=== PATIENT | male | born 1980 ===

== ENCOUNTER 2021-10-16 21:33 | Inpatient (IN) | payer BC, OTHER ==
[~2021-10-16] VITALS: Ht 190.5 cm; Wt 76.3 kg
[~2021-10-16 21:33] MED LIST: ACHD5005 PO; AMOX500C2 PO; CLIN-81 PO; CYCL10TA25 PO; HYDR-4226 PO; OXYC1TAB87 PO; TRAM50TA2 PO
[2021-10-16] MEDS ORDERED: 1/2 NS IV SOLUTION 1,000 ML IV PRN (23:30)
[2021-10-16] MEDS ORDERED: polyethylene glycoL POWDER 17 GM (MIRALAX) PACK PO PRN (23:30)
[2021-10-16] MEDS ORDERED: morphine INJ 4 MG/ML 1 ML (VIAL/SYRINGE) IV PRN (23:30)
[2021-10-16] MEDS ORDERED: LORazepam INJ 2 MG/ML (ATIVAN) VIAL IM/IV PRN (23:30)
[2021-10-16] MEDS ORDERED: VANCOMYCIN INJECTION 0.1 MG in NS (IVPB) 250 ML IV SCH (23:30)
[2021-10-16] MEDS ORDERED: ONDANSETRON 4 MG/2 ML (SDV) Z0FRAN IV PRN ×2 (23:30)
[2021-10-16] MEDS ORDERED: ONDANSETRON 4 MG (ZOFRAN) ORAL DISSOLVE TAB SL PRN (23:30)
[2021-10-16] MEDS ORDERED: diphenhydrAMINE 25 MG TAB (BENADRYL) PO PRN (23:30)
[2021-10-16] MEDS ORDERED: MELATONIN 3 MG TABLET PO PRN (23:30)
[2021-10-16] MEDS ORDERED: D5 1/2 NS 1000 ML IV SOLUTION 1,000 ML IV PRN (23:30)
[2021-10-16] MEDS ORDERED: MILK OF MAGNESIA 400 MG/5 ML 30 ML UDC PO PRN (23:30)
[2021-10-16] MEDS ORDERED: LORazepam 1 MG (ATIVAN) TAB PO PRN (23:30)
[2021-10-16] MEDS ORDERED: DIAZEPAM INJ 10 MG/2 ML (VALIUM) SYR IVP PRN (23:30)
[2021-10-16] MEDS ORDERED: ONDANSETRON 4 MG (ZOFRAN) ORAL DISSOLVE TAB PO PRN (23:30)
[2021-10-16] MEDS ORDERED: LACTULOSE SYRUP 10GM/15ML (ENULOSE) 30ML UDC PO PRN (23:30)
[2021-10-16] MEDS ORDERED: diphenhydrAMINE 50 MG/ML INJ (BENADRYL) IVP PRN (23:30)
[2021-10-16] MEDS ORDERED: ANTACID SUSP 30 ML UDC (MYLANTA) PO PRN ×2 (23:30)
[2021-10-16] MEDS ORDERED: CALCIUM CARBONATE 500 MG (TUMS) TAB.CHEW PO PRN (23:30)
[2021-10-16] MEDS ORDERED: LORazepam INJ 2 MG/ML (ATIVAN) VIAL IV PRN (23:30)
[2021-10-16] MEDS ORDERED: BISACODYL 10 MG SUPP (DULCOLAX) PR PRN (23:30)
[2021-10-16] MEDS ORDERED: SENNA W/DOCUSATE (SENOKOT S) TABLET PO PRN (23:30)
--- NOTE | 2021-10-16 23:40 | History & Physical ---
History of Present Illness HPI/Chief Complaint CC: Dyspnea HPI: This is a 40yoWM who has a h/o meth use who presented to [facility] ER with dyspnea and fever and weakness. He started symptoms last week and has been tested twice for COVID which were negative. Right arm swelling noted and multiple wounds on skin due to meth use noted. Severe hypoxia noted on ABG so patient was placed on oxygen and central line was placed along with arterial line due to critical nature of illness. D Dimer was negative. IVF and abx empirically initiated. Patient appears to be thin and in distress. Higher level of care needed to transferred to [facility]. Source: patient, RN/MD, old records Date Seen 10/16/21 Time Seen by a Provider: 23:00 Attending Physician PCP Admitting Physician: Flor Aguilar DO Attending Physician: Flor Aguilar DO Referring Physician Date of Admission Oct 16, 2021 at 22:42 Home Medications & Allergies Home Medications Reviewed patient Home Medication Reconciliation performed by pharmacy medication reconciliations software support technician and/or nursing. Patients Allergies have been reviewed. Allergies Allergies Coded Allergies No Known Drug Allergies (Unverified10/16/21) Past Dmwujoa-Pblduo-Fitkwf Hx Past Med/Social Hx: Reviewed Nursing Past Med/Soc Hx, Reviewed and Corrections made Patient Social History Marrital Status: single Employed/Student: employed Alcohol Use: Rarely Uses Smoking Status: Current Everyday Smoker Review of Systems Constitutional: see HPI, dizziness, fever, malaise, weakness EENTM: no symptoms reported Respiratory: cough, dyspnea on exertion, short of breath, wheezing Cardiovascular: no symptoms reported Gastrointestinal: no symptoms reported Genitourinary: no symptoms reported Musculoskeletal: back pain, joint pain Skin: see HPI Psychiatric/Neurological: No Symptoms Reported All Other Systems Reviewed Negative Unless Noted: Yes Physical Exam Physical Exam Vital Signs Vital Signs - First Documented 10/16/21 22:45 Temp 36.4 Pulse 86 Resp 27 B/P (MAP) 101/72 Pulse Ox 90 O2 Delivery High Flow N/C O2 Flow Rate 10.00 Capillary Refill : Height, Weight, BMI Height: '" Weight: lbs. oz. kg; 20.39 BMI Method: General Appearance: Anxious, Moderate Distress, Thin Neck: Full Range of Motion, Normal Inspection, Non Tender, Supple, Carotid Bruit Respiratory: Chest Non Tender, Lungs Clear, Normal Breath Sounds, No Accessory Muscle Use, No Respiratory Distress Cardiovascular: No Edema, No Gallop, No JVD, No Murmur, Normal Peripheral Pulses, Tachycardia Extremity: Normal Capillary Refill, Normal Inspection, Normal Range of Motion, Non Tender, No Calf Tenderness, No Pedal Edema, Swelling (right arm) Neurologic/Psychiatric: Alert, Oriented x3, No Motor/Sensory Deficits, Normal Mood/Affect Skin: Rash Results Results/Procedures Labs Laboratory Tests 10/17/21 01:47 10/17/21 04:10 Patient resulted labs reviewed. Assessment/Plan Admission Diagnosis Assessment: Acute respiratory failure requiring transfer to [facility] Sepsis Severe hypoxemia Meth use Right arm edema negative ddimer Cellulitis Smoker Plan: Monitor closely IV abx Lovenox Admission Status: Inpatient Order (span 2 midnights) Reason for Inpatient Admission: Resp failure Diagnosis/Problems Diagnosis/Problems (1) Respiratory failure (2) Sepsis (3) Cellulitis (4) Methamphetamine abuse (5) Hypoxia FLOR AGUILAR DO Oct 16, 2021 23:40
[2021-10-16] MEDS ORDERED: NS IV 1000 ML 1,000 ML ONE (23:54)
[2021-10-17] MEDS: NS IV 1000 ML 1,000 ML IV SCH ×4 (00:08→23:12)
[2021-10-17 00:21] LABS: ABG BASE EXCESS -1.8 MMOL/L (-2.5-2.5); ABG OXYGEN SATURATION 91 % (94-100); ABG PCO2 45 MMHG (35-45); ABG PO2 84 MMHG (79-93); ABG TCO2 24.7 MMOL/L (21.0-31.0)
[2021-10-17 00:25] LABS: ABG PH 7.33 (7.37-7.43)
[2021-10-17 00:26] LABS: ALLENS TEST ART LINE; INSPIRED O2 10L; PATIENT TEMP 36.6; VENTILATOR NO
[2021-10-17] MEDS: PIPERACILLIN SODIUM/TAZOBACTAM 4.5 GM in NS (IVPB) 100 ML IV SCH ×4 (00:54→23:12)
--- NOTE | 2021-10-17 00:56 | Tele-ICU Progress Note ---
Progress Note 40M regular IV meth abuse, tobacco dependent (1.5 ppdx30 years) otherwise healthy presented with dyspnea x4 days, low grade fever around 100. COVID swab negative. At OSH ER SpO2 in mid-80s, HR 125-130, RR 35-40, temp 100.4. EKG with left anterior fascicular block. OSH Labs reviewed: CRP 10.1 WBC 17.1 lactic 7.6 pH 7.45/CO2 37/O2 39/HCO3 25 Central line, art line, NS x2L, zosyn 4.5 gm, vanco 1.25 g given in OSH prior to transfer. Multiple cutaneous lesions in various stages of healing. Left arm swollen, warm from wrist to upper arm. - sepsis: multiple potential sources. Cultures ordered. Empiric zosyn, vanco ordered. Check echo for e/o endocarditis given IVDA. Cellulitus covered by current regimen. - cellulitus: see above - lactic: reported to be 7 at OSH, repeat ordered. - hypoxia: unclear etiology. CXR reported to be clear. Will get CTA to rule out PE. Supportive care ongoing, transitioning to vapotherm now. Focused Exam Height, Weight, BMI Height: '" Weight: lbs. oz. kg; 20.39 BMI Method: AYANA NELSON MD Oct 17, 2021 00:56
[2021-10-17] MEDS ORDERED: ENOXAPARIN 80 MG/0.8 ML (LOVENOX) SYR SC ONE (01:45)
[2021-10-17] MEDS: ENOXAPARIN 80 MG/0.8 ML (LOVENOX) SYR SC SCH ×2 (02:05→12:39)
[2021-10-17 02:30] LABS: BASOPHILS % (AUTO) 0 % (0-10); EOSINOPHILS # (AUTO) 0.5 10^3/uL (0.0-0.3); EOSINOPHILS % (AUTO) 4 % (0-10); HEMATOCRIT 37 % (40-54); LYMPHOCYTES # (AUTO) 0.7 10^3/uL (1.0-4.0); LYMPHOCYTES % (AUTO) 6 % (12-44); MEAN CORPUSCULAR HEMOGLOBIN 31 pg (25-34); MEAN CORPUSCULAR HGB CONC 33 g/dL (32-36); MEAN CORPUSCULAR VOLUME 95 fL (80-99); MEAN PLATELET VOLUME 8.4 fL (9.0-12.2); MONOCYTES # (AUTO) 0.3 10^3/uL (0.0-1.0); MONOCYTES % (AUTO) 2 % (0-12); NEUTROPHILS # (AUTO) 11.1 10^3/uL (1.8-7.8); NEUTROPHILS % (AUTO) 88 % (42-75); PLATELET COUNT 401 10^3/uL (130-400); WHITE BLOOD COUNT 12.7 10^3/uL (4.3-11.0)
[2021-10-17] MEDS: KETOROLAC 15 MG/ML VIAL IV PRN ×2 (02:47→15:20)
[2021-10-17] MEDS: ACETAMINOPHEN 325 MG TABLET PO PRN ×2 (02:48→12:39)
[2021-10-17 02:52] LABS: ALBUMIN 3.2 GM/DL (3.2-4.5); BILIRUBIN,TOTAL 1.2 MG/DL (0.1-1.0); CALCIUM 8.4 MG/DL (8.5-10.1); CREATININE SERUM 0.79 MG/DL (0.60-1.30); MAGNESIUM 1.7 MG/DL (1.6-2.4); PHOSPHORUS 3.1 MG/DL (2.3-4.7); POTASSIUM 3.7 MMOL/L (3.6-5.0); TOTAL PROTEIN 5.9 GM/DL (6.4-8.2)
[2021-10-17] MEDS: VANCOMYCIN 1 GM/NS 250 ML IVPB IV SCH ×6 (03:16→20:48)
[2021-10-17 04:27] LABS: ABG BASE EXCESS -1.6 MMOL/L (-2.5-2.5); ABG OXYGEN SATURATION 93 % (94-100); ABG PCO2 46 MMHG (35-45); ABG PO2 104 MMHG (79-93); ABG TCO2 24.5 MMOL/L (21.0-31.0)
[2021-10-17 04:28] LABS: BASOPHILS % (AUTO) 0 % (0-10); EOSINOPHILS # (AUTO) 0.6 10^3/uL (0.0-0.3); EOSINOPHILS % (AUTO) 4 % (0-10); HEMATOCRIT 35 % (40-54); HEMOGLOBIN 11.6 g/dL (13.3-17.7); LYMPHOCYTES # (AUTO) 0.5 10^3/uL (1.0-4.0); LYMPHOCYTES % (AUTO) 4 % (12-44); MEAN CORPUSCULAR HEMOGLOBIN 31 pg (25-34); MEAN CORPUSCULAR HGB CONC 33 g/dL (32-36); MEAN CORPUSCULAR VOLUME 95 fL (80-99); MEAN PLATELET VOLUME 8.5 fL (9.0-12.2); MONOCYTES # (AUTO) 0.6 10^3/uL (0.0-1.0); MONOCYTES % (AUTO) 4 % (0-12); NEUTROPHILS # (AUTO) 12.9 10^3/uL (1.8-7.8); NEUTROPHILS % (AUTO) 88 % (42-75); PLATELET COUNT 383 10^3/uL (130-400); WHITE BLOOD COUNT 14.7 10^3/uL (4.3-11.0)
[2021-10-17 04:29] LABS: ABG PH 7.33 (7.37-7.43); INSPIRED O2 7L; VENTILATOR NO
[2021-10-17 04:30] LABS: PATIENT TEMP 38.6
[2021-10-17 04:45] LABS: ALBUMIN 3.1 GM/DL (3.2-4.5); BILIRUBIN,TOTAL 1.1 MG/DL (0.1-1.0); CALCIUM 8.2 MG/DL (8.5-10.1); CREATININE SERUM 0.78 MG/DL (0.60-1.30); MAGNESIUM 1.5 MG/DL (1.6-2.4); PHOSPHORUS 2.2 MG/DL (2.3-4.7); POTASSIUM 3.7 MMOL/L (3.6-5.0); TOTAL PROTEIN 5.6 GM/DL (6.4-8.2)
[2021-10-17 04:50] LABS: BAND NEUTROPHILS 3 %; EOSINOPHILS % (MANUAL) 2 %; LYMPHOCYTES % (MANUAL) 4 %; MONOCYTES % (MANUAL) 2 %; NEUTROPHILS % (MANUAL) 89 %; RBC MORPH NORMAL
[2021-10-17] MEDS: MAGNESIUM 1 GM/100 ML IVPB 100 ML IV SCH ×3 (05:11→05:21)
[2021-10-17] MEDS: POTASSIUM CL 10MEQ/50ML IVPB 50 ML IV SCH (05:21)
[2021-10-17] MEDS: KCL 20 MEQ TAB (K-DUR) PO SCH (05:21)
[2021-10-17] MEDS: MULTIVIT W/MINERALS TAB (THERAGRAN M) PO SCH (05:27)
[2021-10-17] MEDS: THIAMINE 100 MG (VITAMIN B-1) TAB PO SCH (05:27)
--- NOTE | 2021-10-17 07:22 | Diagnostic Imaging Report ---
Indication: Dyspnea. Time of Exam: 6:12 AM No prior studies available for comparison. Right side line has tip overlying SVC. Heart size normal. There is central congestion. No infiltrates are seen. No effusion or pneumothorax. IMPRESSION: Mild central congestion. Dictated by: Dictated on workstation # [id number]
[2021-10-17] MEDS: FOLIC ACID 1 MG TAB PO SCH (08:32)
[2021-10-17] MEDS: MAGNESIUM OXIDE (MAG-OX)400 MG TAB PO SCH ×2 (08:32→17:54)
[2021-10-17] MEDS: DOCUSATE SODIUM 100 MG (COLACE) CAP PO SCH ×2 (08:33→20:48)
[2021-10-17] MEDS: SENNOSIDES 8.6 MG (SENOKOT) TAB PO SCH ×2 (08:33→20:48)
[2021-10-17] MEDS: THIAMINE INJECTION 100 MG, FOLIC ACID INJECTION 1 MG, MAGNESIUM SULFATE 2 GM, VITAMIN M... IV SCH ×5 (08:44)
[2021-10-17] MEDS ORDERED: ENOXAPARIN 40 MG/0.4 ML (LOVENOX) SYR SC SCH (09:00)
[2021-10-17] MEDS: MONTELUKAST 10 MG (SINGULAIR) TAB PO SCH (10:14)
[2021-10-17] MEDS: LORATADINE (CLARITIN) 10 MG TAB PO SCH (10:14)
[2021-10-17] MEDS: methylPREDNISolone 40 MG/ML (Solu-MEDROL) VIAL IV SCH ×4 (10:14→23:12)
--- NOTE | 2021-10-17 10:18 | Progress Note - Hospitalist ---
NESSANamrataDEONDRE ESPINOZA 10/17/21 1018: Subjective HPI/CC On Admission Date Seen by Provider: Oct 17, 2021 Time Seen by Provider: 09:55 CC: Dyspnea HPI: This is a 40yoWM who has a h/o meth use who presented to [facility] with dyspnea and fever and weakness. He started symptoms last week and has been tested twice for COVID which were negative. Right arm swelling noted and multiple wounds on skin due to meth use noted. Severe hypoxia noted on ABG so patient was placed on oxygen and central line was placed along with arterial line due to critical nature of illness. D Dimer was negative. IVF and abx empirically initiated. Patient appears to be thin and in distress. Higher level of care needed to transferred to [facility]. Subjective/Events-last exam Patient reports no acute events overnight. He continues to have fevers and chills. He reports having new onset low back pain and throat pain. Focused Exam Lactate Level 10/17/21 01:47: Lactic Acid Level 0.66 Objective Exam Vital Signs Vital Signs Date Time Temp Pulse Resp B/P (MAP) Pulse Ox O2 Delivery O2 Flow Rate FiO2 10/17/21 10:00 104 34 95 High Flow N/C 7.00 10/17/21 08:00 37.7 Capillary Refill : Less Than 3 Seconds General Appearance: No Apparent Distress, Anxious HEENT: Pharynx Normal, Moist Mucous Membranes Neck: Normal Inspection, Supple Respiratory: Chest Non Tender, No Respiratory Distress, Decreased Breath Sounds, Rhonci Cardiovascular: Regular Rate, Rhythm, No JVD Gastrointestinal: Normal Bowel Sounds, Non Tender Back: Normal Inspection, Vertebral Tenderness (mid thoracic spine) Extremity: Normal Capillary Refill, Swelling (Right arm edematous to the elbow) Neurologic/Psychiatric: Alert, Oriented x3 Skin: Normal Color, Diaphoresis, Rash (multiple lesions over arms bilaterally) Results/Procedures Lab Laboratory Tests 10/17/21 01:47 10/17/21 04:10 Patient resulted labs reviewed. Assessment/Plan Assessment and Plan Assess & Plan/Chief Complaint 1) Sepsis Severe Hypoxemia * Multiple possible sources of infection * Cultures obtained and pending * Empiric zosyn and vancomycin * Echo to r/o endocarditis * Repeat Lactic Acid 2) Right arm edema * d-dimer negative * upper extremity US 3) COPD exacerbation * CXR (10/17): mild central congestion * Start Duoneb, Singulair, fluticasone/salmeterol, and Claritin * Start methylprednisolone 40mg q6hr 4) New onset Low Back Pain * Thoracic and lumbar x ray 5) History of Meth use * Watch for withdrawal * Supplement thiamine, folic acid, potassium, and magnesium FLOR DEE DO 10/18/21 0550: Subjective Subjective/Events-last exam Pt is doing a lot better High flow oxygen at 7L now ABG is 7.3/46/104 White count is 14,000 Overall doing very well Still critical will keep up in ICU Broad spectrum antibiotics maintained Review of Systems General: Fatigue, Malaise Objective Exam General Appearance: Anxious, Chronically ill, Mild Distress Respiratory: No Respiratory Distress, Decreased Breath Sounds, Wheezing Cardiovascular: Regular Rate, Rhythm Neurologic/Psychiatric: Alert, Oriented x3 Assessment/Plan Assessment and Plan Assess & Plan/Chief Complaint Treat as AECOPD IV abx ICU Hi kiara O2 Supervisory-Addendum Brief Verification & Attestation Participated in pt care: history, MDM, physical Personally performed: exam, history, MDM, supervision of care Care discussed with: Medical Student Procedures: n/a Results interpretation: Verified all documentation Verification and Attestation of Medical Student E/M Service A medical student performed and documented this service in my presence. I reviewed and verified all information documented by the medical student and made modifications to such information, when appropriate. I personally performed the physical exam and medical decision making. Flor Dee, Oct 18, 2021,05:48 DEONDRE PETIT Oct 17, 2021 10:18 FLOR DEE DO Oct 18, 2021 05:50
--- NOTE | 2021-10-17 10:29 | Diagnostic Imaging Report ---
INDICATION: Right arm pain and swelling. FINDINGS: Right internal jugular vein as well as a right subclavian and axillary veins are widely patent. Brachial vein is patent. Radial and ulnar veins as well as the cephalic and basilic veins are patent. No thrombus is seen. No fluid collections are identified. IMPRESSION: No evidence of right upper extremity DVT. Dictated by: Dictated on workstation # [id number]
[2021-10-17] MEDS: RT-ALBUTEROL/IPRATROPIUM 3 ML (DUONEB) VIAL INH SCH ×5 (10:44→22:31)
[2021-10-17] MEDS: RT--FLUTICASONE/SALMETEROL 113-14 (AIRDUO RespiCLICK) IH SCH ×2 (10:50→22:32)
[2021-10-17] MEDS ORDERED: NS 100 ML (IVPB) BAG IV ONE (14:15)
[2021-10-17] MEDS ORDERED: CATHETER FLUSH 10 ML SYR IV PRN (14:15)
[2021-10-17] MEDS ORDERED: IOHEXOL 350 MG/ML 100 ML (OMNIPAQUE 350) VIAL IV ONE ×2 (14:15)
[2021-10-17] MEDS ORDERED: HOLD METFORMIN - RECEIVED CONTRAST 20 ML VIAL IV SCH (14:15)
--- NOTE | 2021-10-17 14:21 | Diagnostic Imaging Report ---
EXAMINATION: CT angiography of the chest. TECHNIQUE: Contrast enhanced thin section helical images were obtained through the chest with intravenous contrast timed for the optimal opacification of the arterial structures per CTA protocol. Post-processing, reconstructions and interpretation of angiographic images of the vessels was performed. 3D MIP reconstructions were performed and reviewed. All CT scans use one or more of the following dose optimizing techniques: automated exposure control, MA and/or KvP adjustment based on a patient size and exam type, or iterative reconstruction. HISTORY: Hypoxia COMPARISON: None available. FINDINGS: Vascular: No filling defects within the visualized pulmonary arteries. Limited evaluation of distal pulmonary artery secondary to respiratory motion. Thoracic aorta is normal in caliber. Thyroid: The thyroid is normal. Mediastinum: Heart size is normal without significant pericardial effusion. There are a few prominent mediastinal and axillary lymph nodes which are not pathologically enlarged. Lungs and airways: There are background emphysematous changes of lungs without consolidation, pleural effusion, or pneumothorax. The airways are normal. Upper abdomen: The subphrenic structures are normal. Musculoskeletal: No suspicious osseous lesion or compression fracture. IMPRESSION: 1. No findings of pulmonary embolus or other acute abnormality in the chest. 2. Prominent mediastinal and axillary lymph nodes are nonspecific. Dictated by: Dictated on workstation # [id number]
--- NOTE | 2021-10-17 14:41 | Diagnostic Imaging Report ---
EXAMINATION: Lumbosacral spine 2 or 3 views HISTORY: Pain, fever COMPARISON: None FINDINGS: There is contrast within the visualized renal collecting systems likely due to recent contrast CT. Alignment of spine is preserved. Vertebral body heights maintained. Intervertebral disc spaces preserved. No acute osseous abnormality is appreciated. IMPRESSION: 1. No acute process. Dictated by: Dictated on workstation # [id number]
--- NOTE | 2021-10-17 14:51 | Diagnostic Imaging Report ---
INDICATION: Back pain fever FINDINGS: Thoracic statures are normal. The alignment is anatomic. No bony destruction or endplate irregularities are radiographically appreciable. No fracture deformity. IMPRESSION: Unremarkable radiographic appearance of the thoracic spine. Dictated by: Dictated on workstation # [id number]
[2021-10-17] MEDS ORDERED: TROUGH ORDER-PHARMACY XX ONE (19:00)
[2021-10-18] MEDS: ENOXAPARIN 80 MG/0.8 ML (LOVENOX) SYR SC SCH (01:54)
[2021-10-18] MEDS: RT-ALBUTEROL/IPRATROPIUM 3 ML (DUONEB) VIAL INH SCH ×2 (02:25→06:30)
[2021-10-18] MEDS: VANCOMYCIN 1 GM/NS 250 ML IVPB IV SCH ×6 (03:37→20:07)
[2021-10-18 03:47] LABS: BASOPHILS % (AUTO) 0 % (0-10); EOSINOPHILS % (AUTO) 0 % (0-10); HEMATOCRIT 35 % (40-54); HEMOGLOBIN 11.5 g/dL (13.3-17.7); LYMPHOCYTES # (AUTO) 0.7 10^3/uL (1.0-4.0); LYMPHOCYTES % (AUTO) 6 % (12-44); MEAN CORPUSCULAR HEMOGLOBIN 31 pg (25-34); MEAN CORPUSCULAR HGB CONC 33 g/dL (32-36); MEAN CORPUSCULAR VOLUME 96 fL (80-99); MEAN PLATELET VOLUME 8.6 fL (9.0-12.2); MONOCYTES # (AUTO) 0.2 10^3/uL (0.0-1.0); MONOCYTES % (AUTO) 2 % (0-12); NEUTROPHILS # (AUTO) 10.9 10^3/uL (1.8-7.8); NEUTROPHILS % (AUTO) 91 % (42-75); PLATELET COUNT 379 10^3/uL (130-400); WHITE BLOOD COUNT 12.1 10^3/uL (4.3-11.0)
[2021-10-18 04:00] LABS: POTASSIUM 3.7 MMOL/L (3.6-5.0)
[2021-10-18 04:01] LABS: CALCIUM 8.6 MG/DL (8.5-10.1)
[2021-10-18 04:02] LABS: TOTAL PROTEIN 5.6 GM/DL (6.4-8.2)
[2021-10-18 04:04] LABS: BILIRUBIN,TOTAL 0.6 MG/DL (0.1-1.0)
[2021-10-18 04:05] LABS: PHOSPHORUS 1.7 MG/DL (2.3-4.7)
[2021-10-18 04:06] LABS: CREATININE SERUM 0.73 MG/DL (0.60-1.30)
[2021-10-18 04:09] LABS: MAGNESIUM 2.2 MG/DL (1.6-2.4)
[2021-10-18] MEDS: MAGNESIUM 1 GM/100 ML IVPB 100 ML IV SCH (04:20)
[2021-10-18] MEDS: POTASSIUM CL 10MEQ/50ML IVPB 50 ML IV SCH (04:20)
[2021-10-18] MEDS: KCL 20 MEQ TAB (K-DUR) PO SCH (04:20)
[2021-10-18] MEDS: methylPREDNISolone 40 MG/ML (Solu-MEDROL) VIAL IV SCH ×3 (06:02→17:57)
[2021-10-18] MEDS: THIAMINE 100 MG (VITAMIN B-1) TAB PO SCH (06:02)
[2021-10-18] MEDS: MULTIVIT W/MINERALS TAB (THERAGRAN M) PO SCH (06:02)
[2021-10-18] MEDS: NS IV 1000 ML 1,000 ML IV SCH ×2 (06:02→14:42)
[2021-10-18] MEDS: RT--FLUTICASONE/SALMETEROL 113-14 (AIRDUO RespiCLICK) IH SCH ×2 (06:30→21:05)
[2021-10-18 07:11] LABS: ABG BASE EXCESS -1.1 MMOL/L (-2.5-2.5); ABG OXYGEN SATURATION 93 % (94-100); ABG PCO2 40 MMHG (35-45); ABG PH 7.38 (7.37-7.43); ABG PO2 84 MMHG (79-93); ABG TCO2 24.6 MMOL/L (21.0-31.0)
[2021-10-18 07:12] LABS: ALLENS TEST YES-POS; INSPIRED O2 RA; PATIENT TEMP 36.7; VENTILATOR NO
[2021-10-18] MEDS: LORATADINE (CLARITIN) 10 MG TAB PO SCH (08:01)
[2021-10-18] MEDS: SENNOSIDES 8.6 MG (SENOKOT) TAB PO SCH ×2 (08:01→22:05)
[2021-10-18] MEDS: FOLIC ACID 1 MG TAB PO SCH (08:01)
[2021-10-18] MEDS: PIPERACILLIN SODIUM/TAZOBACTAM 4.5 GM in NS (IVPB) 100 ML IV SCH ×2 (08:01→17:57)
[2021-10-18] MEDS: MONTELUKAST 10 MG (SINGULAIR) TAB PO SCH (08:01)
[2021-10-18] MEDS: DOCUSATE SODIUM 100 MG (COLACE) CAP PO SCH ×2 (08:01→22:05)
[2021-10-18] MEDS: MAGNESIUM OXIDE (MAG-OX)400 MG TAB PO SCH ×2 (08:01→17:57)
[2021-10-18] MEDS: THIAMINE INJECTION 100 MG, FOLIC ACID INJECTION 1 MG, MAGNESIUM SULFATE 2 GM, VITAMIN M... IV SCH ×5 (08:02)
--- NOTE | 2021-10-18 08:27 | Diagnostic Imaging Report ---
INDICATION: Dyspnea. Frontal chest obtained at 04:13 a.m. and compared to yesterday FINDINGS: Right IJ catheter is unchanged. The heart is normal in size. There is central vascular congestion with borderline interstitial edema. There is no new consolidation. There is a small amount of pleural fluid in left costophrenic angle which is new compared to the prior study. There is no pneumothorax. IMPRESSION: Central vascular congestion with borderline interstitial edema. New small left pleural effusion. Dictated by: Dictated on workstation # [id number]
--- NOTE | 2021-10-18 10:12 | Tele-ICU Progress Note ---
Subjective Date Seen by a Provider: Oct 18, 2021 Time Seen by a Provider: 08:15 Subjective/Events-last exam Available chart/vitals/labs/images reviewed. Video assessment done using telemetry ICU camera, rest of exam as per RN. Discussion with the RN, exam as per RN. Hospital course This patient admitted with intravenous drug abuse with meth and with shortness of breath and possible cellulitis. He is placed on oxygen 4 L nasal cannula he is breathing much better initially at an outside facility his lactic acid is 7.0 and today came down to 0.66. He does not have any pain at this time. He did have a central venous catheter. He is started on a broad-spectrum antibiotics. I have ordered blood cultures. Now hemodynamically stable. Sepsis Event Evaluation Height, Weight, BMI Height: '" Weight: lbs. oz. kg; 16.75 BMI Method: Focused Exam Lactate Level 10/17/21 01:47: Lactic Acid Level 0.66 Exam Exam Patient acknowledged, consented, and participated in this virtual visit which was conducted using real time audio/video Vital Signs Date Time Temp Pulse Resp B/P (MAP) Pulse Ox O2 Delivery O2 Flow Rate FiO2 10/18/21 10:00 71 16 136/87 97 High Flow N/C 4.00 10/18/21 09:00 98 13 127/85 95 High Flow N/C 4.00 10/18/21 08:00 36.9 10/18/21 08:00 94 17 96 High Flow N/C 4.00 10/18/21 07:00 79 17 133/98 96 High Flow N/C 4.00 10/18/21 07:00 85 10/18/21 06:30 96 High Flow N/C 4.00 10/18/21 06:00 56 19 126/80 98 High Flow N/C 4.00 10/18/21 05:00 75 13 114/77 96 High Flow N/C 4.00 10/18/21 04:00 82 22 114/70 95 High Flow N/C 4.00 10/18/21 03:40 99 High Flow N/C 4.00 10/18/21 03:36 36.8 High Flow N/C 4.00 10/18/21 03:00 60 15 122/88 97 High Flow N/C 4.00 10/18/21 02:30 High Flow N/C 4.00 10/18/21 02:25 97 High Flow N/C 6.00 10/18/21 02:00 70 19 106/67 100 High Flow N/C 7.00 10/18/21 01:00 64 13 124/76 91 High Flow N/C 7.00 10/18/21 01:00 64 10/18/21 00:00 81 14 109/75 95 High Flow N/C 7.00 10/17/21 23:15 36.1 62 12 121/78 95 High Flow N/C 7.00 10/17/21 23:15 93 High Flow N/C 7.00 10/17/21 22:32 98 High Flow N/C 8.00 10/17/21 22:00 68 18 106/73 96 High Flow N/C 6.00 10/17/21 21:00 71 14 101/68 98 High Flow N/C 9.00 10/17/21 20:00 64 18 109/73 90 High Flow N/C 9.00 10/17/21 19:25 94 High Flow N/C 8.00 10/17/21 19:00 36.4 63 15 93/56 96 High Flow N/C 8.00 Arterial Line 10/17/21 19:00 77 10/17/21 18:23 96 High Flow N/C 4.00 10/17/21 18:00 79 26 103/69 95 High Flow N/C 7.00 10/17/21 17:00 77 17 122/72 95 High Flow N/C 7.00 10/17/21 16:00 95 High Flow N/C 7.06 10/17/21 16:00 107 17 123/80 100 High Flow N/C 7.00 10/17/21 15:27 Nasal Cannula 4.00 10/17/21 15:24 95 High Flow N/C 5.00 10/17/21 15:00 80 19 115/60 100 High Flow N/C 7.00 10/17/21 14:00 117 29 93 High Flow N/C 7.00 10/17/21 13:00 113 25 96 High Flow N/C 7.00 10/17/21 13:00 109 10/17/21 12:39 38.0 10/17/21 12:00 38.6 10/17/21 12:00 101 24 96 High Flow N/C 7.00 10/17/21 12:00 94 High Flow N/C 4.00 10/17/21 11:00 95 32 96 High Flow N/C 7.00 l I & O 10/18/21 07:00 Intake Total 6160.2 ml Output Total 2925 ml Balance 3235.2 ml Height & Weight Height: '" Weight: lbs. oz. kg; 16.75 BMI Method: General Appearance: Anxious, Chronically ill, Mild Distress HEENT: Pharynx Normal, Moist Mucous Membranes Neck: Normal Inspection, Supple Respiratory: No Respiratory Distress, Decreased Breath Sounds, Wheezing Cardiovascular: Regular Rate, Rhythm Capillary Refill: Less Than 3 Seconds Extremity: Normal Capillary Refill, Swelling (Right arm edematous to the elbow) Neurologic/Psychiatric: Alert, Oriented x3 Skin: Normal Color, Diaphoresis, Rash (multiple lesions over arms bilaterally) Other comments PE PER RN Results Lab Laboratory Tests 10/17/21 01:47 10/17/21 04:10 10/18/21 03:40 Assessment/Plan Assessment/Plan 1. Cellulitis of the right arm. 2. Rule out septicemia 3. History of intravenous drug abuse with methamphetamine. 4. Lactic acidosis probably due to sepsis which is now improved 5. Acute hypoxic respiratory failure which probably is due to sepsis and hyperreactive airway disease currently improved Recommendations 1. We will get blood cultures and urine tox screen 2. Suggest echocardiogram to rule out any vegetations 3. Continue hydration with IV fluids 4. Broad-spectrum antibiotics per primary care physician. 5. From critical care point of view he may be transferred to medical surgical floor. 6. DVT prophylaxis with Lovenox 7. wean oxygen as tolerated. Critical Care: Critically Ill Patient THA UNGER MD Oct 18, 2021 10:11
[2021-10-18] MEDS ORDERED: ENOXAPARIN INJECTION 30 MG/0.3 ML SYR SC SCH (10:30)
[2021-10-18] MEDS: RT-ALBUTEROL SULF 2.5 MG/3 ML PRE-MIX VIAL INH SCH ×3 (10:39→21:07)
--- NOTE | 2021-10-18 12:38 | Progress Note - Hospitalist ---
DEONDRE PETIT 10/18/21 1238: Subjective HPI/CC On Admission Date Seen by Provider: Oct 18, 2021 Time Seen by Provider: 10:30 CC: Dyspnea HPI: This is a 40yoWM who has a h/o meth use who presented [place] [facility] with dyspnea and fever and weakness. He started symptoms last week and has been tested twice for COVID which were negative. Right arm swelling noted and multiple wounds on skin due to meth use noted. Severe hypoxia noted on ABG so patient was placed on oxygen and central line was placed along with arterial line due to critical nature of illness. D Dimer was negative. IVF and abx empirically initiated. Patient appears to be thin and in distress. Higher level of care needed to transferred to [facility]. Subjective/Events-last exam Patient reports no acute events overnight. Feels significantly better than yesterday. No longer experiencing fever/chills or back pain. Continues to have some throat pain. Feels that both arms appear swollen now. Review of Systems General: No Chills, No Night Sweats, No Fatigue HEENT: No Head Aches, No Visual Changes; Sore Throat Pulmonary: No Dyspnea; Cough Cardiovascular: No: Chest Pain, Palpitations Gastrointestinal: No: Nausea, Vomiting, Diarrhea Genitourinary: No Dysuria Musculoskeletal: No: back pain Neurological: No: Confusion Focused Exam Lactate Level 10/17/21 01:47: Lactic Acid Level 0.66 Objective Exam Vital Signs Vital Signs Date Time Temp Pulse Resp B/P (MAP) Pulse Ox O2 Delivery O2 Flow Rate FiO2 10/18/21 11:41 106 28 88 High Flow N/C 4.00 10/18/21 08:00 36.9 Capillary Refill : Less Than 3 Seconds General Appearance: No Apparent Distress HEENT: Moist Mucous Membranes Neck: Normal Inspection, Non Tender, Supple Respiratory: Chest Non Tender, Lungs Clear, Normal Breath Sounds Cardiovascular: Regular Rate, Rhythm, No Edema, No JVD Gastrointestinal: Normal Bowel Sounds, Non Tender Rectal: Deferred Back: Normal Inspection, No Vertebral Tenderness Extremity: Normal Capillary Refill, Non Tender, Swelling (Bilateral arm swellin g R>L) Neurologic/Psychiatric: Alert, Oriented x3 Skin: Normal Color, Warm/Dry, Rash (Lesions over both arms bilaterally) Results/Procedures Lab Laboratory Tests 10/18/21 03:40 Patient resulted labs reviewed. Assessment/Plan Assessment and Plan Assess & Plan/Chief Complaint 1) Sepsis Severe Hypoxemia * Multiple possible sources of infection * Cultures obtained at [place] and pending * Empiric zosyn and vancomycin * AB.38, 40, 84 on 4L high flow NC * Echo to r/o endocarditis * D/c fluids in setting of stable vitals and arm edema * PT/OT 2) Right arm edema * d-dimer negative * upper extremity US revealed no evidence of DVT * CT angio negative for PE, revealed prominent mediastinal lymph nodes 3) COPD exacerbation * CXR (10/17): mild central congestion * Continue Duoneb, Singulair, fluticasone/salmeterol, and Claritin * Continue methylprednisolone 40mg q6hr 4) New onset Low Back Pain (resolved) * Thoracic and lumbar x ray negative 5) History of Meth use * Watch for withdrawal * Supplement thiamine, folic acid, potassium, and magnesium Dispo: Patient stable. Will move to fourth floor for further medical management. FLOR DEE DO 10/19/21 0600: Subjective Subjective/Events-last exam Pt is doing a lot better Mother is at the bedside Sugar is elevated from steroids Transferring to the floor White count is 12.1 ABG really looks good Will hep lock IV fluid and move to the floor Review of Systems General: Fatigue Pulmonary: Dyspnea Objective Exam General Appearance: No Apparent Distress, WD/WN, Chronically ill Respiratory: Lungs Clear, Normal Breath Sounds Cardiovascular: Regular Rate, Rhythm Neurologic/Psychiatric: Alert, Oriented x3, No Motor/Sensory Deficits, Normal Mood/Affect Assessment/Plan Assessment and Plan Assess & Plan/Chief Complaint Move to 4th Supervisory-Addendum Brief Verification & Attestation Participated in pt care: history, MDM, physical Personally performed: exam, history, MDM, supervision of care Care discussed with: Medical Student Procedures: n/a Results interpretation: Verified all documentation Verification and Attestation of Medical Student E/M Service A medical student performed and documented this service in my presence. I reviewed and verified all information documented by the medical student and made modifications to such information, when appropriate. I personally performed the physical exam and medical decision making. Flor Dee Oct 19, 2021,05:59 DEONDRE PETIT Oct 18, 2021 12:38 FLOR DEE DO Oct 19, 2021 06:00
[2021-10-19] MEDS: NS IV 1000 ML 1,000 ML IV SCH ×3 (00:18→16:43)
[2021-10-19] MEDS: methylPREDNISolone 40 MG/ML (Solu-MEDROL) VIAL IV SCH ×4 (00:25→16:59)
[2021-10-19] MEDS: PIPERACILLIN SODIUM/TAZOBACTAM 4.5 GM in NS (IVPB) 100 ML IV SCH ×3 (00:25→16:59)
[2021-10-19] MEDS: VANCOMYCIN 1 GM/NS 250 ML IVPB IV SCH ×2 (04:49)
[2021-10-19 05:03] LABS: BASOPHILS % (AUTO) 0 % (0-10); EOSINOPHILS % (AUTO) 0 % (0-10); HEMATOCRIT 31 % (40-54); HEMOGLOBIN 10.3 g/dL (13.3-17.7); LYMPHOCYTES # (AUTO) 1.4 10^3/uL (1.0-4.0); LYMPHOCYTES % (AUTO) 6 % (12-44); MEAN CORPUSCULAR HEMOGLOBIN 32 pg (25-34); MEAN CORPUSCULAR HGB CONC 33 g/dL (32-36); MEAN CORPUSCULAR VOLUME 95 fL (80-99); MONOCYTES # (AUTO) 0.8 10^3/uL (0.0-1.0); MONOCYTES % (AUTO) 4 % (0-12); NEUTROPHILS # (AUTO) 19.7 10^3/uL (1.8-7.8); NEUTROPHILS % (AUTO) 89 % (42-75); PLATELET COUNT 414 10^3/uL (130-400); WHITE BLOOD COUNT 22.1 10^3/uL (4.3-11.0)
[2021-10-19 05:15] LABS: POTASSIUM 4.1 MMOL/L (3.6-5.0)
[2021-10-19 05:16] LABS: CALCIUM 8.5 MG/DL (8.5-10.1)
[2021-10-19 05:18] LABS: TOTAL PROTEIN 5.5 GM/DL (6.4-8.2)
[2021-10-19 05:19] LABS: BILIRUBIN,TOTAL 0.4 MG/DL (0.1-1.0)
[2021-10-19 05:21] LABS: CREATININE SERUM 0.68 MG/DL (0.60-1.30)
[2021-10-19] MEDS: RT-ALBUTEROL SULF 2.5 MG/3 ML PRE-MIX VIAL INH SCH ×3 (07:15→21:30)
[2021-10-19] MEDS: RT--FLUTICASONE/SALMETEROL 113-14 (AIRDUO RespiCLICK) IH SCH ×2 (07:18→21:24)
--- NOTE | 2021-10-19 07:44 | Tele-ICU Progress Note ---
Subjective Date Seen by a Provider: Oct 19, 2021 Time Seen by a Provider: 07:44 Sepsis Event Evaluation Height, Weight, BMI Height: '" Weight: lbs. oz. kg; 21.02 BMI Method: Focused Exam Lactate Level 10/17/21 01:47: Lactic Acid Level 0.66 Exam Exam Patient acknowledged, consented, and participated in this virtual visit which was conducted using real time audio/video Vital Signs Date Time Temp Pulse Resp B/P (MAP) Pulse Ox O2 Delivery O2 Flow Rate FiO2 10/19/21 07:19 96 High Flow N/C 2.50 10/19/21 04:00 57 124/78 94 High Flow N/C 2.00 10/19/21 03:59 37.1 10/19/21 00:00 83 106/66 94 High Flow N/C 2.00 10/18/21 23:59 36.6 10/18/21 21:26 97 High Flow N/C 2.00 10/18/21 21:08 97 High Flow N/C 2.50 10/18/21 20:00 91 26 107/63 93 High Flow N/C 2.00 10/18/21 16:39 94 High Flow N/C 2.50 10/18/21 16:00 94 130/79 94 High Flow N/C 2.50 10/18/21 15:00 High Flow N/C 2.50 10/18/21 12:00 77 107/55 93 High Flow N/C 4.00 10/18/21 11:41 106 28 88 High Flow N/C 4.00 10/18/21 11:00 106 28 92/49 88 High Flow N/C 4.00 10/18/21 10:45 94 High Flow N/C 3.00 10/18/21 10:00 71 16 136/87 97 High Flow N/C 4.00 10/18/21 09:00 98 13 127/85 95 High Flow N/C 4.00 10/18/21 08:00 97 High Flow N/C 4.00 10/18/21 08:00 36.9 10/18/21 08:00 94 17 96 High Flow N/C 4.00 I & O 10/19/21 07:00 Intake Total 2190 ml Output Total 3050 ml Balance -860 ml Height & Weight Height: '" Weight: lbs. oz. kg; 21.02 BMI Method: General Appearance: No Apparent Distress, WD/WN, Chronically ill HEENT: Moist Mucous Membranes Neck: Normal Inspection, Non Tender, Supple Respiratory: Lungs Clear, Normal Breath Sounds Cardiovascular: Regular Rate, Rhythm Capillary Refill: Less Than 3 Seconds Extremity: Normal Capillary Refill, Non Tender, Swelling (Bilateral arm swelling R>L) Neurologic/Psychiatric: Alert, Oriented x3, No Motor/Sensory Deficits, Normal Mood/Affect Skin: Normal Color, Warm/Dry, Rash (Lesions over both arms bilaterally) Results Lab Laboratory Tests 10/18/21 03:40 10/19/21 04:50 Assessment/Plan Assessment/Plan 1. Cellulitis of the right arm. 2. Rule out septicemia 3. History of intravenous drug abuse with methamphetamine. 4. Lactic acidosis probably due to sepsis which is now improved 5. Acute hypoxic respiratory failure which probably is due to sepsis and hyperreactive airway disease currently improved Recommendations 1. We will get blood cultures and urine tox screen 2. Suggest echocardiogram to rule out any vegetations 3. Continue hydration with IV fluids 4. Broad-spectrum antibiotics per primary care physician. 5. From critical care point of view he may be transferred to medical surgical floor. 6. DVT prophylaxis with Lovenox 7. wean oxygen as tolerated. THA UNGER MD Oct 19, 2021 07:44
[2021-10-19] MEDS: MAGNESIUM OXIDE (MAG-OX)400 MG TAB PO SCH ×2 (09:25→16:59)
[2021-10-19] MEDS: ENOXAPARIN INJECTION 30 MG/0.3 ML SYR SC SCH (09:25)
[2021-10-19] MEDS: SENNOSIDES 8.6 MG (SENOKOT) TAB PO SCH ×2 (09:25→20:53)
[2021-10-19] MEDS: LORATADINE (CLARITIN) 10 MG TAB PO SCH (09:25)
[2021-10-19] MEDS: MULTIVIT W/MINERALS TAB (THERAGRAN M) PO SCH (09:25)
[2021-10-19] MEDS: MONTELUKAST 10 MG (SINGULAIR) TAB PO SCH (09:25)
[2021-10-19] MEDS: THIAMINE 100 MG (VITAMIN B-1) TAB PO SCH (09:25)
[2021-10-19] MEDS: FOLIC ACID 1 MG TAB PO SCH (09:25)
[2021-10-19] MEDS: DOCUSATE SODIUM 100 MG (COLACE) CAP PO SCH ×2 (09:25→20:53)
--- NOTE | 2021-10-19 10:05 | Progress Note - Hospitalist ---
DEONDRE PETIT 10/19/21 1004: Subjective HPI/CC On Admission Date Seen by Provider: Oct 19, 2021 Time Seen by Provider: 09:40 CC: Dyspnea HPI: This is a 40yoWM who has a h/o meth use who presented to [facility] with dyspnea and fever and weakness. He started symptoms last week and has been tested twice for COVID which were negative. Right arm swelling noted and multiple wounds on skin due to meth use noted. Severe hypoxia noted on ABG so patient was placed on oxygen and central line was placed along with arterial line due to critical nature of illness. D Dimer was negative. IVF and abx empirically initiated. Patient appears to be thin and in distress. Higher level of care needed to transferred to [facility]. Subjective/Events-last exam Patient reports no acute events overnight. Feeling significantly better today. SOB and back pain have resolved. Continues to have a sore throat but this is improving. Swelling to both arms is improving. Review of Systems General: No Chills, No Night Sweats, No Fatigue HEENT: No Head Aches, No Visual Changes Pulmonary: No Dyspnea, No Cough Cardiovascular: No: Chest Pain, Palpitations Gastrointestinal: No: Nausea, Vomiting Genitourinary: No Dysuria, No Frequency Musculoskeletal: No: back pain Neurological: No: Confusion Focused Exam Lactate Level 10/17/21 01:47: Lactic Acid Level 0.66 Objective Exam Vital Signs Vital Signs Date Time Temp Pulse Resp B/P (MAP) Pulse Ox O2 Delivery O2 Flow Rate FiO2 10/19/21 07:57 36.6 94 16 96/71 96 10/19/21 07:19 High Flow N/C 2.50 Capillary Refill : Less Than 3 Seconds General Appearance: No Apparent Distress HEENT: Moist Mucous Membranes Neck: Full Range of Motion, Normal Inspection, Supple Respiratory: Chest Non Tender, Lungs Clear, No Respiratory Distress Cardiovascular: Regular Rate, Rhythm, No Edema, No JVD Gastrointestinal: Normal Bowel Sounds, Non Tender Rectal: Deferred Back: Normal Inspection, No CVA Tenderness Extremity: Normal Capillary Refill Neurologic/Psychiatric: Alert, Oriented x3 Skin: Normal Color, Warm/Dry, Rash (lesions over both arms), Other (swelling improved from yesterday) Lymphatic: No Adenopathy Results/Procedures Lab Laboratory Tests 10/19/21 04:50 Patient resulted labs reviewed. Assessment/Plan Assessment and Plan Assess & Plan/Chief Complaint 1) Sepsis Severe Hypoxemia * Multiple possible sources of infection * Cultures obtained at [place] and pending * Empiric zosyn and vancomycin * Echo (10/17): no signs of endocarditis * D/c fluids in setting of stable vitals and arm edema * PT/OT 2) Right arm edema * d-dimer negative * upper extremity US revealed no evidence of DVT * CT angio negative for PE, revealed prominent mediastinal lymph nodes 3) COPD exacerbation * CXR (10/17): mild central congestion * CXR (10/18): new small left pleural effusion * Requiring less O2 today * Continue Duoneb, Singulair, fluticasone/salmeterol, and Claritin * Continue methylprednisolone 40mg q6hr 4) New onset Low Back Pain (resolved) * Thoracic and lumbar x ray negative 5) History of Meth use * Watch for withdrawal * Supplement thiamine, folic acid, potassium, and magnesium Dispo: Patient stable. Will move to fourth floor with goal of oxygen wean and ambulation. FLOR DEE DO 10/19/213: Subjective Subjective/Events-last exam Pt is doing a lot better Down to 2L of oxygen Will move to 4th floor and ambulate Review of Systems General: Fatigue, Malaise Objective Exam General Appearance: No Apparent Distress, Chronically ill Respiratory: Normal Breath Sounds, No Accessory Muscle Use, Decreased Breath Sounds Cardiovascular: Regular Rate, Rhythm Neurologic/Psychiatric: Alert, Oriented x3, No Motor/Sensory Deficits, Normal Mood/Affect Assessment/Plan Assessment and Plan Assess & Plan/Chief Complaint Move to floor Wean O2 Supervisory-Addendum Brief Verification & Attestation Participated in pt care: history, MDM, physical Personally performed: exam, history, MDM, supervision of care Care discussed with: Medical Student Procedures: n/a Results interpretation: Verified all documentation Verification and Attestation of Medical Student E/M Service A medical student performed and documented this service in my presence. I reviewed and verified all information documented by the medical student and made modifications to such information, when appropriate. I personally performed the physical exam and medical decision making. Flor Dee, Oct 19, 2021,21:41 DEONDRE PETIT Oct 19, 2021 10:04 FLOR DEE DO Oct 19, 2021 21:43
[2021-10-20] MEDS: PIPERACILLIN SODIUM/TAZOBACTAM 4.5 GM in NS (IVPB) 100 ML IV SCH ×2 (00:20→08:42)
[2021-10-20] MEDS: methylPREDNISolone 40 MG/ML (Solu-MEDROL) VIAL IV SCH ×2 (00:20→05:21)
[2021-10-20] MEDS: NS IV 1000 ML 1,000 ML IV SCH ×2 (00:20→08:48)
[2021-10-20 05:38] LABS: BASOPHILS % (AUTO) 0 % (0-10); EOSINOPHILS % (AUTO) 0 % (0-10); HEMATOCRIT 32 % (40-54); HEMOGLOBIN 10.4 g/dL (13.3-17.7); LYMPHOCYTES # (AUTO) 1.7 10^3/uL (1.0-4.0); LYMPHOCYTES % (AUTO) 9 % (12-44); MEAN CORPUSCULAR HEMOGLOBIN 31 pg (25-34); MEAN CORPUSCULAR HGB CONC 33 g/dL (32-36); MEAN CORPUSCULAR VOLUME 95 fL (80-99); MEAN PLATELET VOLUME 9.1 fL (9.0-12.2); MONOCYTES # (AUTO) 0.8 10^3/uL (0.0-1.0); MONOCYTES % (AUTO) 4 % (0-12); NEUTROPHILS # (AUTO) 15.6 10^3/uL (1.8-7.8); NEUTROPHILS % (AUTO) 85 % (42-75); PLATELET COUNT 456 10^3/uL (130-400); WHITE BLOOD COUNT 18.4 10^3/uL (4.3-11.0)
[2021-10-20 05:58] LABS: ALBUMIN 3.1 GM/DL (3.2-4.5)
[2021-10-20 05:59] LABS: POTASSIUM 3.9 MMOL/L (3.6-5.0)
[2021-10-20 06:00] LABS: CALCIUM 8.5 MG/DL (8.5-10.1)
[2021-10-20 06:01] LABS: TOTAL PROTEIN 5.7 GM/DL (6.4-8.2)
[2021-10-20 06:03] LABS: BILIRUBIN,TOTAL 0.4 MG/DL (0.1-1.0)
[2021-10-20 06:05] LABS: CREATININE SERUM 0.75 MG/DL (0.60-1.30)
[2021-10-20] MEDS: MULTIVIT W/MINERALS TAB (THERAGRAN M) PO SCH (07:00)
[2021-10-20] MEDS: RT--FLUTICASONE/SALMETEROL 113-14 (AIRDUO RespiCLICK) IH SCH (08:24)
[2021-10-20] MEDS: RT-ALBUTEROL SULF 2.5 MG/3 ML PRE-MIX VIAL INH SCH (08:24)
[2021-10-20] MEDS: MAGNESIUM OXIDE (MAG-OX)400 MG TAB PO SCH (08:43)
[2021-10-20] MEDS: MONTELUKAST 10 MG (SINGULAIR) TAB PO SCH (08:43)
[2021-10-20] MEDS: LORATADINE (CLARITIN) 10 MG TAB PO SCH (08:43)
[2021-10-20] MEDS: FOLIC ACID 1 MG TAB PO SCH (08:43)
[2021-10-20] MEDS: ENOXAPARIN INJECTION 30 MG/0.3 ML SYR SC SCH (08:44)
[2021-10-20] MEDS: SENNOSIDES 8.6 MG (SENOKOT) TAB PO SCH (08:49)
[2021-10-20] MEDS: DOCUSATE SODIUM 100 MG (COLACE) CAP PO SCH (08:49)
[2021-10-20] MEDS ORDERED: RT-ALBUINH IH (12:54)
[2021-10-20] MEDS ORDERED: LORA10TA7 PO (12:54)
[2021-10-20] MEDS ORDERED: CEFD300C3 PO (12:54)
[2021-10-20] MEDS ORDERED: PRED10TA22 PO (12:54)
[2021-10-20] MEDS ORDERED: MONT-40 PO (12:54)
--- NOTE | 2021-10-20 12:55 | Discharge Summary ---
Discharge Summary Hospital Course Was the Problem List Reviewed?: Yes Problems/Dx: (1) Respiratory failure (2) Sepsis (3) Cellulitis (4) Methamphetamine abuse (5) Hypoxia Hospital Course Date of Admission: Oct 16, 2021 at 22:42 Admission Diagnosis : Family Physician/Provider: Date of Discharge: 10/20/21 Discharge Diagnosis: [ ] Hospital Course: Lengthy course after admitted from [facility] for higher level of care for hypoxia and sepsis. All Cx were negative and it was assessed that he had heat exposure and dehydration with bacterial bronchitis with severe sepsis and AECOPD with recent meth use. Overall did very well and weaned off O2. Labs and Pending Lab Test: Laboratory Tests 10/20/21 05:16: White Blood Count 18.4H, Red Blood Count 3.32L, Hemoglobin 10.4L, Hematocrit 32L , Mean Corpuscular Volume 95, Mean Corpuscular Hemoglobin 31, Mean Corpuscular Hemoglobin Concent 33, Red Cell Distribution Width 13.3, Platelet Count 456H, Mean Platelet Volume 9.1, Immature Granulocyte % (Auto) 1, Neutrophils (%) (Auto) 85H, Lymphocytes (%) (Auto) 9L, Monocytes (%) (Auto) 4, Eosinophils (%) (Auto) 0, Basophils (%) (Auto) 0, Neutrophils # (Auto) 15.6H, Lymphocytes # (Auto) 1.7, Monocytes # (Auto) 0.8, Eosinophils # (Auto) 0.0, Basophils # (Auto) 0.0, Immature Granulocyte # (Auto) 0.2H, Sodium Level 142, Potassium Level 3.9, Chloride Level 106, Carbon Dioxide Level 24, Anion Gap 12, Blood Urea Nitrogen 10, Creatinine 0.75, Estimat Glomerular Filtration Rate 116, BUN/Creatinine Ratio 13, Glucose Level 169H, Calcium Level 8.5, Corrected Calcium 9.2, Total Bilirubin 0.4, Aspartate Amino Transf (AST/SGOT) 29, Alanine Aminotransferase (ALT/SGPT) 15, Alkaline Phosphatase 68, Total Protein 5.7L, Albumin 3.1L Microbiology 10/18/21 Blood Culture - Preliminary, Resulted No growth 10/18/21 Gram Stain - Final, Resulted 10/18/21 Sputum Culture - Preliminary, Resulted Usual upper respiratory zhanna Home Meds Active Prednisone 10 Mg Tab.ds.pk 10 Mg PO DAILY Take 4 tabs(40mg)daily,decrease by 1 tab(10MG)daily. Cefdinir 300 Mg Capsule 300 Mg PO BID Proair Hfa (Albuterol Sulfate) 1 Puff Puff 2 Puff IH Q4H 1 PUFF = 90 MCG Montelukast Sodium 10 Mg Tablet 10 Mg PO DAILY@0800 Loratadine 10 Mg Tablet 10 Mg PO DAILY Assessment/Pt Instructions PCP to establish Discharge Planning: <30 minutes discharge planning Discharge Instructions Discharge Diet: No Restrictions Activity as Tolerated: Yes Discharge Physical Examination Vital Signs Vital Signs Date Time Temp Pulse Resp B/P (MAP) Pulse Ox O2 Delivery O2 Flow Rate FiO2 10/20/21 11:34 37.4 92 18 118/64 92 Room Air 10/19/21 21:31 0.00 21 General Appearance: No Apparent Distress, WD/WN Respiratory: Chest Non Tender, Lungs Clear, Normal Breath Sounds, No Accessory Muscle Use, No Respiratory Distress Cardiovascular: Regular Rate, Rhythm, No Edema, No Gallop, No JVD, No Murmur, Normal Peripheral Pulses Neurologic/Psychiatric: Alert, Oriented x3, No Motor/Sensory Deficits, Normal Mood/Affect Allergies: Coded Allergies: NKANo Known Allergies (Unverified Allergy, Mild, 10/17/21) Discharge Summary Date of Admission Oct 16, 2021 at 22:42 Date of Discharge Discharge Date: Oct 20, 2021 Admission Diagnosis Assessment: Acute respiratory failure requiring transfer to [facility] Sepsis Severe hypoxemia Meth use Right arm edema negative ddimer Cellulitis Smoker Plan: Monitor closely IV abx Lovenox Discharge Diagnosis Move to floor Wean O2 (1) Respiratory failure (2) Sepsis (3) Cellulitis (4) Methamphetamine abuse (5) Hypoxia MAYR DEE DO Oct 20, 2021 12:55
[2021-10-20 14:05] VITALS: BP 118/64
[2021-10-21] MEDS ORDERED: ENOXAPARIN 40 MG/0.4 ML (LOVENOX) SYR SC SCH (08:00)
== END 2021-10-20 14:05 | disposition home or self-care (01) | DRG 871 ==
LOC: ICU 22:42 → 4TH 10-19 12:46
PROVIDERS: ADMIT Internal Medicine; ATTEND Internal Medicine
PROC: 5A0945A Assistance with Respiratory Ventilation, 24-96 Consecutive Hours, High Flow/Velocity Cannula (ICD-10-PCS; principal; 2021-10-16)
DX: A41.9 Sepsis, unspecified organism (principal); J96.01 Acute respiratory failure with hypoxia; J44.1 Chronic obstructive pulmonary disease with (acute) exacerbation; L03.113 Cellulitis of right upper limb; E87.2 Acidosis; Z20.822 Contact with and (suspected) exposure to COVID-19; F17.210 Nicotine dependence, cigarettes, uncomplicated; F15.10 Other stimulant abuse, uncomplicated; M54.50 Low back pain, unspecified; E86.0 Dehydration
CPT/HCPCS: 36415; 71045; 71275; 72070; 72100; 80053; 80202; 82805; 83605; 83735; 84100; 85007; 85025; 85027; 85379; 86141; 87040; 87070; 87081; 87205; 87636; 93005; 93306; 94640; 94760; 94761